=== PATIENT | female | born 1985 | race Caucasian/White ===

== ENCOUNTER 2018-11-25 20:18 | Inpatient (IN) | payer BC ==
[~2018-11-25] VITALS: Ht 170.2 cm; Wt 54.9 kg
[2018-11-25] MEDS ORDERED: ACETAMINOPHEN ES 500 MG TABLET ONE (20:44)
[2018-11-25] MEDS ORDERED: TDAP [DIPH/PERTUSSIS/TET] 0.5 ML VIAL IM ONE ×2 (20:45→21:00)
[2018-11-25] MEDS ORDERED: HYDROCODONE/APAP 10/325MG 1 EA TABLET PO ONE (21:00)
[2018-11-25] MEDS ORDERED: ACETAMINOPHEN 325 MG TABLET PO ONE (21:00)
[2018-11-25] MEDS ORDERED: ONDANSETRON 4 MG TAB.RAPDIS PO ONE ×2 (21:00→22:00)
[2018-11-25] MEDS ORDERED: ONDANSETRON 4 MG TAB.RAPDIS ONE (21:41)
[2018-11-25] MEDS ORDERED: TRAMADOL HCL 50 MG TABLET ONE (21:41)
[2018-11-25] MEDS ORDERED: TRAMADOL HCL 50 MG TABLET PO ONE (22:00)
[2018-11-25] MEDS ORDERED: LIDOCAINE 1%-EPI 1:100,000 20 ML VIAL ONE (22:00)
[2018-11-25] MEDS ORDERED: LORAZEPAM 1 MG TABLET PO ONE (22:30)
[2018-11-25 22:32] LABS: BASOPHILS # (AUTO) 0.1 /CMM (0.0-0.2); BASOPHILS % (AUTO) 0.3 % (0.0-2.0); EOSINOPHILS % (AUTO) 0.3 % (0.0-6.0); HEMATOCRIT 38 % (33-45); HEMOGLOBIN 12.8 g/dL (11.5-14.8); LYMPHOCYTES % (AUTO) 5.7 % (20.0-44.0); MEAN CORPUSCULAR HGB CONC 34 g/dl (31.0-36.0); MEAN CORPUSCULAR VOLUME 94 fL (82-100); MONOCYTES # (AUTO) 0.6 /CMM (0.1-1.30); MONOCYTES % (AUTO) 3.3 % (2.0-12.0); NEUTROPHILS # (AUTO) 16.3 /CMM (1.8-8.9); NEUTROPHILS % (AUTO) 90.4 % (43.0-81.0); PLATELET COUNT (AUTO) 308 /CMM (150-450); RED BLOOD CELL COUNT(AUTO) 4.03 MIL/uL (4.0-5.2)
[2018-11-25 22:43] LABS: CALCIUM, SERUM 8.4 mg/dL (8.5-10.1); CREATININE 0.6 mg/dL (0.6-1.3); POTASSIUM 3.5 mmol/L (3.5-5.1)
[2018-11-25] MEDS ORDERED: LORAZEPAM 0.5 MG TABLET ONE (22:44)
[2018-11-25] MEDS ORDERED: CEFAZOLIN 2 GM in IV NS 0.9% 50 ML IV STA (23:08)
[2018-11-25] MEDS ORDERED: MAGNESIUM HYDROXIDE 30 ML UDC PO PRN (23:30)
[2018-11-25] MEDS ORDERED: MORPHINE SULFATE INJ 4 MG/ML DISP.SYRIN IV PRN (23:30)
[2018-11-25] MEDS ORDERED: Z GUARD REMEDY 2 OZ OINT TP PRN (23:30)
[2018-11-25] MEDS ORDERED: MAG HYDROX/AL HYDROX/SIMETH 30 ML UDC PO PRN (23:30)
[2018-11-25] MEDS ORDERED: ZOLPIDEM TARTRATE 5 MG TABLET PO PRN (23:30)
[2018-11-25] MEDS ORDERED: ACETAMINOPHEN 325 MG TABLET PO PRN (23:30)
[2018-11-25 23:50] VITALS: BP 113/71
--- NOTE | 2018-11-26 | NUR ---
RN MS ADMISSION NOTES RECEIVED PATIENT FROM ER [facility]. DX. MANDIBULAR FRACTURE. PATIENT IS ALERT AND ORIENTED X4, VERBALLY RESPONSIVE, ABLE TO MAKE NEEDS KNOWN. VAUGHN, BOYFRIEND, AT BEDSIDE. BREATHING EVEN AND UNLABORED. NO SOB NOTED. TOLERATING ROOM AIR. CURRENTLY WITH NO COMPLAINTS OF PAIN OR DISCOMFORT. NO FACIAL GRIMACING. IV ON LEFT FOREARM INTACT AND PATENT. SKIN DRY AND WARM TO TOUCH. AFEBRILE. PATIENT NOTED WITH LACERATION TO HER LOWER LIP AND CHIN. PATIENT'S CHIN HAS 3 CYNTHIA. CLEANSED SITE AND APPLIED DRY DRESSING. SKIN ASSESSMENT DONE WITH PICTURES TAKEN AND PLACED IN CHART. ORIENTED TO THE USE OF UNIT AMENITIES. INSTRUCTED ON THE USE OF CALL LIGHT. BELONGINGS ACCOUNTED FOR. SAFETY MEASURES IN PLACE. CALL LIGHT WITHIN REACH. WILL CONTINUE TO MONITOR.
[2018-11-26] MEDS ORDERED: SERT50TA PO (00:28)
[2018-11-26] MEDS ORDERED: CEFAZOLIN 2 GM in IV NS 0.9% 50 ML IV ONE (00:30)
[2018-11-26] MEDS: IV D5/0.45 NACL 1,000 ML IV PRN ×2 (00:34→20:05)
[2018-11-26] MEDS ORDERED: ALPRAZOLAM 0.25 MG TABLET PO PRN (01:00)
[2018-11-26] MEDS: ONDANSETRON HCL/PF 4 MG/2 ML VIAL IVP PRN ×4 (01:06→17:45)
[2018-11-26] MEDS ORDERED: CEFTRIAXONE 1 G VIAL ONE (02:02)
[2018-11-26] MEDS: CEFTRIAXONE 1 G in IV D5W 50 ML IV SCH (02:09)
[2018-11-26] MEDS: HYDROCODONE/APAP 5/325MG 1 EACH TABLET PO PRN ×4 (03:14→17:34)
[2018-11-26 04:00] VITALS: BP 113/71
[2018-11-26 06:52] LABS: BASOPHILS % (AUTO) 0.3 % (0.0-2.0); EOSINOPHILS % (AUTO) 0.4 % (0.0-6.0); HEMATOCRIT 37 % (33-45); HEMOGLOBIN 12.4 g/dL (11.5-14.8); LYMPHOCYTES % (AUTO) 16.3 % (20.0-44.0); MEAN CORPUSCULAR HGB CONC 33 g/dl (31.0-36.0); MEAN CORPUSCULAR VOLUME 94 fL (82-100); MONOCYTES # (AUTO) 0.8 /CMM (0.1-1.30); MONOCYTES % (AUTO) 6.7 % (2.0-12.0); NEUTROPHILS # (AUTO) 9.4 /CMM (1.8-8.9); NEUTROPHILS % (AUTO) 76.3 % (43.0-81.0); PLATELET COUNT (AUTO) 308 /CMM (150-450); RED BLOOD CELL COUNT(AUTO) 3.95 MIL/uL (4.0-5.2); WHITE BLOOD COUNT (AUTO) 12.3 K/uL (4.3-11.0)
--- NOTE | 2018-11-26 06:55 | NUR ---
RN MS CLOSING NOTES PATIENT RESTING IN BED. NO ACUTE CHANGES. BOYFRIEND AT BEDSIDE. BREATHING EVEN AND UNLABORED. NO SOB NOTED. TOLERATING ROOM AIR. PRN PAIN MEDICATION GIVEN RECENTLY. IV INTACT AND PATENT WITH IVF INFUSING. KEPT COMFORTABLE. ALL NEEDS MET. SAFETY MEASURES IN PLACE. CALL LIGHT WITHIN REACH. WILL ENDORSE TO ONCOMING NURSE FOR ISABEL.
[2018-11-26 07:18] LABS: CALCIUM, SERUM 8.4 mg/dL (8.5-10.1); CREATININE 0.6 mg/dL (0.6-1.3); MAGNESIUM 1.9 mg/dL (1.8-2.4); PHOSPHORUS 3.9 mg/dL (2.5-4.9); POTASSIUM 4.7 mmol/L (3.5-5.1)
[2018-11-26] MEDS ORDERED: PANTOPRAZOLE 40 MG VIAL IV SCH (07:30)
[2018-11-26 07:39] LABS: THYROID STIMULATING HORMONE 4.75 uIU/mL (0.358-3.74)
[2018-11-26 08:00] VITALS: BP 108/69
[2018-11-26] MEDS ORDERED: LORAZEPAM 0.5 MG TABLET PO PRN (08:30)
[2018-11-26] MEDS ORDERED: HYDROMORPHONE INJ 0.5 MG/0.5 ML SYRINGE IV PRN (08:30)
[2018-11-26] MEDS: FAMOTIDINE/PF INJ 20 MG/2 ML VIAL IV SCH ×2 (09:07→20:42)
[2018-11-26] MEDS: HYDROMORPHONE 1 MG/1 ML DISP.SYRIN IV PRN ×2 (11:17→20:04)
--- NOTE | 2018-11-26 11:21 | NUR ---
WOUND CARE CONSULT: PT PRESENTS WITH BRUISING AND LOWER LIP SWELLING WITH SUTURED LACERATION TO CHIN, PRESENT ON ADMISSION. DEFER TO SURGEON. WILL SEE PRN. PT IS CONTINENT AND INDEPENDENT WITH BED MOBILITY. Addendum: 11/26/18 at 1122 by KASSIE SHOOK WNDNU Amended: Links added.
[2018-11-26 16:00] VITALS: BP 100/59
--- NOTE | 2018-11-26 18:55 | NUR ---
pt stable at this time; pain managed well with current pain regimen; laceration to chin with sutures intact and open to air; moderate swelling; ice encouraged; medicated for nausea twice this shift; currently on clear liquids and tolerating well and then NPO at midnight. pt aware of scheduled surgery tomorrow. pt refused urine sample to be taken for test, stating "I just did it for CT scan". pt will also like to sign consent with surgeon tomorrow as she has more questions to ask. supportive boyfriend at bedside.
--- NOTE | 2018-11-26 19:20 | NUR ---
MSRN FULLY AWAKE, VISITOR AT BEDSIDE. VERBALIZES HERNÁNDEZ. CLEAR LIQUIDS ONLY. AWARE NPO AFTER MIDNIGHT, FOR SURGERY IN AM. ALL NEEDS ATTENDED, TO CONTINUE.
[2018-11-26 20:00] VITALS: BP 101/75
--- NOTE | 2018-11-26 20:05 | NUR ---
MSRN INCREASING PAIN ON MANDIBULAR AREA, DILAUDED 0.5MG IVP ADMINISTERED SLOWLY. BEDREST INSTRUCTED.
--- NOTE | 2018-11-26 21:00 | NUR ---
MSRN WAS NAUSEATED EARLIER, PEPCID 20 MG IVP ADMINISTERED WITH RELIEF. PRESENT IVF CONTINUED.
[2018-11-26] MEDS: SERTRALINE HCL 50 MG TABLET PO SCH (22:00)
--- NOTE | 2018-11-26 22:00 | NUR ---
LATRICE ZOLOFT NOT ADMINISTERED. STATED SHE TOOK HER OWN ZOLOFT EARLIER TODAY.
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
[2018-11-27] VITALS (7 sets, daily range): BP systolic 98–126; BP diastolic 54–84
[2018-11-27] MEDS: ONDANSETRON HCL/PF 4 MG/2 ML VIAL IVP PRN ×2 (00:28→08:30)
--- NOTE | 2018-11-27 00:30 | NUR ---
MSRN DILAUDED 0.5 MG IVP GIVEN SLOWLY FOR MANDIBLE PAIN, ZOFRAN FOR NAUSEA. NPO INSTRUCTED. CONSENTS NOT SIGNED , STATED WANTED TO SPEAK TO ANESTHESIOLOGIST AND SURGEON PRIOR TO SIGNING.
[2018-11-27] MEDS: HYDROMORPHONE 1 MG/1 ML DISP.SYRIN IV PRN (00:38)
[2018-11-27] MEDS: CEFTRIAXONE 1 G in IV D5W 50 ML IV SCH (02:47)
--- NOTE | 2018-11-27 05:00 | NUR ---
MSRN VOMITTED ABOUT 50 CC OF ACIDIC EMESIS, FELT BETTER AFTER VOMITTING. KEPT NPO.
[2018-11-27] MEDS: IV D5/0.45 NACL 1,000 ML IV PRN ×2 (05:19→13:00)
[2018-11-27 06:18] LABS: BASOPHILS % (AUTO) 0.3 % (0.0-2.0); CREATININE 0.5 mg/dL (0.6-1.3); EOSINOPHILS % (AUTO) 0.6 % (0.0-6.0); HEMATOCRIT 35 % (33-45); HEMOGLOBIN 11.7 g/dL (11.5-14.8); LYMPHOCYTES # (AUTO) 0.8 /CMM (0.8-4.8); LYMPHOCYTES % (AUTO) 11.2 % (20.0-44.0); MEAN CORPUSCULAR HGB CONC 34 g/dl (31.0-36.0); MEAN CORPUSCULAR VOLUME 95 fL (82-100); MONOCYTES # (AUTO) 0.6 /CMM (0.1-1.30); MONOCYTES % (AUTO) 8.4 % (2.0-12.0); NEUTROPHILS # (AUTO) 5.8 /CMM (1.8-8.9); NEUTROPHILS % (AUTO) 79.5 % (43.0-81.0); PLATELET COUNT (AUTO) 259 /CMM (150-450); POTASSIUM 4.1 mmol/L (3.5-5.1); RED BLOOD CELL COUNT(AUTO) 3.67 MIL/uL (4.0-5.2); WHITE BLOOD COUNT (AUTO) 7.3 K/uL (4.3-11.0)
--- NOTE | 2018-11-27 07:20 | NUR ---
MSRN ENDORSED TO INCOMING RN FOR CONTINUITY OF CARE.
--- NOTE | 2018-11-27 07:20 | NUR ---
MSRN ENDORSED TO INCOMING RN FOR CONTINUITY OF CARE.
--- NOTE | 2018-11-27 07:27 | NUR ---
RN MS OPENING NOTES Patient received on room air, no sob noted. Patient denies pain at this time. Patient has scheduled surgery at 0800 and will sign consent once her questions are answered by the anesthesiologist.
[2018-11-27] MEDS: FAMOTIDINE/PF INJ 20 MG/2 ML VIAL IV SCH ×2 (08:30→20:44)
[2018-11-27] MEDS: LORAZEPAM INJ 2 MG/ML VIAL IV PRN ×2 (08:50→20:43)
[2018-11-27] MEDS ORDERED: ANESTHESIA TRAY IN PYXIS 1 EA TRAY MC ONE (14:26)
[2018-11-27] MEDS ORDERED: LIDOCAINE HCL/PF 1% 30 ML SDV ONE (14:26)
[2018-11-27] MEDS ORDERED: BUPIVACAINE MPF 0.5% W/EPI INJ 30 ML VIAL ONE (14:26)
[2018-11-27] MEDS ORDERED: KETAMINE HCL (500MG/10ML) 50 MG/ML VIAL ONE (14:39)
[2018-11-27] MEDS ORDERED: PROPOFOL 100 ML ONE (14:39)
[2018-11-27] MEDS ORDERED: MIDAZOLAM HCL 2 MG/2ML VIAL ONE ×2 (14:40→16:20)
[2018-11-27] MEDS ORDERED: ROCURONIUM BROMIDE 50 MG/5 ML ONE (14:40)
[2018-11-27] MEDS ORDERED: PROPOFOL 200 ML ONE (16:19)
--- NOTE | 2018-11-27 18:52 | NUR ---
RN MS CLOSING NOTES Patient remains in surgery at this time. Patient left around 1500 for surgery.
--- NOTE | 2018-11-27 19:15 | NUR ---
PT ON SURGERY. AWAITING PT
--- NOTE | 2018-11-27 20:50 | NUR ---
Receive pt from PACU unit at 2029 s/p ORIF mandible fracture closed reduction maxillary under . Pt a/o x4, on 2lpm via nc 02 sat at 99%. VS stable respirations even and unlabored. stable pt c/o having anxiety, kept clean, dry and comfortable.
[2018-11-27] MEDS: SERTRALINE HCL 50 MG TABLET PO SCH (21:01)
[2018-11-27] MEDS ORDERED: HYDROCODONE/APAP 5/325MG 1 EACH TABLET PO PRN (22:00)
[2018-11-27] MEDS ORDERED: IBUPROFEN 800 MG TABLET PO PRN (22:00)
[2018-11-27] MEDS ORDERED: ONDANSETRON 4 MG TAB.RAPDIS PO PRN (22:00)
[2018-11-27] MEDS: AMOX/CLAVULANATE 875 MG TABLET PO SCH (22:56)
[2018-11-28] VITALS: BP 99/66
[2018-11-28] MEDS: LORAZEPAM INJ 2 MG/ML VIAL IV PRN ×4 (02:51→19:20)
[2018-11-28 04:00] VITALS: BP 115/83
[2018-11-28] MEDS: ONDANSETRON HCL/PF 4 MG/2 ML VIAL IV PRN ×3 (06:03→16:17)
[2018-11-28] MEDS: MORPHINE SULFATE INJ 2 MG/ML DISP.SYRIN IV PRN ×4 (06:04→19:31)
--- NOTE | 2018-11-28 06:32 | NUR ---
MS RN ASLEEP AND EASILY AWAKEN, S/P ORIF MANDIBLE INCISION NO S/S OF BLEEDING INTACT, KISHORE. NO NAUSEA AND VOMITING AT THIS TIME, ICE TO FACE Q20 MIN EVERY HOUR IMPLEMENTED TOLERATED WELL. PT AMBULATE TO THE RESTROOM MULTIPLE TIMES. KEPT HEPLOCK I.V TO ENCOURAGE PT PO INTAKE PER DR. TOPETE ORDER. PT TOLERATED LIQUID DIET ADVANCE TO MECHANICAL SOFT ORDERED. RESPIRATION EVEN AND UNLABORED, KEPT CLEAN AND DRY AND COMFORTABLE. NEEDS ATTENDED AND ANTICIPATED, NURSING CARE RENDERED, SAFETY MEASURES AT ALL TIMES. ENDORSE TO THE NEXT SHIFT.
[2018-11-28] MEDS ORDERED: IBUPROFEN 400 MG TABLET PO PRN (07:00)
[2018-11-28 07:40] LABS: BASOPHILS % (AUTO) 0.2 % (0.0-2.0); HEMATOCRIT 32 % (33-45); HEMOGLOBIN 10.8 g/dL (11.5-14.8); LYMPHOCYTES # (AUTO) 1.2 /CMM (0.8-4.8); MEAN CORPUSCULAR HGB CONC 34 g/dl (31.0-36.0); MEAN CORPUSCULAR VOLUME 95 fL (82-100); MONOCYTES # (AUTO) 1.1 /CMM (0.1-1.30); NEUTROPHILS # (AUTO) 8.5 /CMM (1.8-8.9); NEUTROPHILS % (AUTO) 78.8 % (43.0-81.0); PLATELET COUNT (AUTO) 259 /CMM (150-450); RED BLOOD CELL COUNT(AUTO) 3.36 MIL/uL (4.0-5.2); WHITE BLOOD COUNT (AUTO) 10.8 K/uL (4.3-11.0)
[2018-11-28 07:50] LABS: CALCIUM, SERUM 8.4 mg/dL (8.5-10.1); CREATININE 0.5 mg/dL (0.6-1.3)
[2018-11-28] MEDS: CHLORHEXIDINE GLUCONATE 15 ML UDC MM SCH ×3 (08:52→16:17)
[2018-11-28] MEDS: AMOX/CLAVULANATE 875 MG TABLET PO SCH ×2 (08:52→16:17)
[2018-11-28] MEDS: FAMOTIDINE/PF INJ 20 MG/2 ML VIAL IV SCH (08:52)
[2018-11-28 09:23] VITALS: BP 113/70
[2018-11-28] MEDS ORDERED: CT SWABBABLE VALVE TRANS SET 1 EA INFUS.SET MC ONE (15:01)
[2018-11-28] MEDS ORDERED: IOHEXOL-300 100 ML VIAL IV ONE (15:01)
[2018-11-28] MEDS ORDERED: IV NS 0.9% 250 ML IV ONE (15:01)
[2018-11-28 15:58] VITALS: BP 111/75
[2018-11-28] MEDS ORDERED: HYDR-4384 PO (18:21)
[2018-11-28] MEDS ORDERED: AMOX-430 PO (18:22)
--- NOTE | 2018-11-28 19:54 | NUR ---
M/S RN NOTES PATIENT DISCHARGED TODAY, IN STABLE CONDITION. NO RESPIRATORY DISTRESS, PAIN TOLERABLE WITH MORPHINE GIVEN ORDERED. SKIN ASSESSED, NO SKIN BREAKDOWN. IV REMOVED AND APPLIED PRESSURE DRESSING. DISCHARGE INSTRUCTIONS GIVEN, MEDICATION PRESCRIPTION GIVEN PER MD ORDER. BELONGINGS ACCOUNTED FOR AND SIGNED. PATIENT ESCORTED TO LOBBY IN PRIVATE CAR WITH VAUGHN (BOYFRIEND).
== END 2018-11-28 19:50 | disposition home or self-care (01) | DRG 132 ==
LOC: ER 20:23 → MED 22:46
PROVIDERS: ADMIT Student in an Organized Health Care Education/Training Program; ATTEND Student in an Organized Health Care Education/Training Program
PROC: 0NSRXZZ Reposition Maxilla, External Approach (ICD-10-PCS; principal; 2018-11-27)
PROC: 0CQ1XZZ Repair Lower Lip, External Approach (ICD-10-PCS; principal; 2018-11-27)
PROC: 0NST04Z Reposition Right Mandible with Internal Fixation Device, Open Approach (ICD-10-PCS; principal; 2018-11-27)
PROC: 0NSV04Z Reposition Left Mandible with Internal Fixation Device, Open Approach (ICD-10-PCS; principal; 2018-11-27)
DX: S02.641B Fracture of ramus of right mandible, initial encounter for open fracture (principal); V00.831A Fall from motorized mobility scooter, initial encounter; Y93.I9 Activity, other involving external motion; Y92.410 Unspecified street and highway as the place of occurrence of the external cause; F41.9 Anxiety disorder, unspecified; F32.9 Major depressive disorder, single episode, unspecified; S02.40DB Maxillary fracture, left side, initial encounter for open fracture; S02.612B Fracture of condylar process of left mandible, initial encounter for open fracture; Z88.2 Allergy status to sulfonamides; S03.02XA Dislocation of jaw, left side, initial encounter; D72.829 Elevated white blood cell count, unspecified
CPT/HCPCS: 36415; 70450-TC; 70486-TC; 70487-TC; 71045-TC; 72125-TC; 80048-TC; 80061-TC; 83735-TC; 84100-TC; 84439-TC; 84443-TC; 84703-TC; 85025-TC; 85730-TC; 86850-TC; 87081-TC; 90715; A4216; A6402; G0378; J0690; J0696; J1100; J1170; J1885; J2060; J2250; J2270; J2405; J2704; J2765; J3490; J7050; J7060; Q0162; Q9967